=== PATIENT | male | born 1945 | race Caucasian/White ===

== ENCOUNTER → 2016-12-03 | Outpatient (CLI) | payer MEDICARE, BC | END | disposition home or self-care (01) | LOC: HKI 08:39 | PROVIDERS: ATTEND Orthopaedic Surgery | DX: M17.0 Bilateral primary osteoarthritis of knee (principal) | CPT/HCPCS: 20610; G0463; J7324 ==

== ENCOUNTER → 2016-12-10 | Outpatient (CLI) | payer MEDICARE, BC ==
--- NOTE | 2016-12-11 07:24 | HKNOTE ---
DATE OF SERVICE: 12/10/2016 INTERVAL HISTORY: The patient presents today for a followup on his left knee. He has a history of bilateral knee osteoarthritis and has had Orthovisc injections in the past. He last was injected with Orthovisc 1 week ago and is here today for a second injection. He had no adverse reactions from the previous injection. Symptomatically he is feeling better overall. He denies any erythema or warmth. He presents today for a second injection. PHYSICAL EXAMINATION: The patient is alert and oriented x4, in no acute distress. Knee range of motion is adequate. Varus and valgus forces are stable. There is no effusion, no erythema or warmth. Compartments are soft. Neurovascular status is intact distally. IMAGING: None done today. ASSESSMENT: Left knee osteoarthritis, here for second Orthovisc injection. PLAN: Under sterile conditions, the left knee was injected with 2 mL of Orthovisc here in the clinic today. The patient had no adverse events. He was advised to ice the area and avoid physical activity today. He will follow up in 1 weeks' time for his last injection. Dictated By: SHIRA BRIGGS PA for TARA CHRISTENSEN/AILYN Conf#: [id number] DID#: [id number] MTDD
== END | disposition home or self-care (01) ==
LOC: HKI 13:06
PROVIDERS: ATTEND Orthopaedic Surgery
DX: M17.12 Unilateral primary osteoarthritis, left knee (principal)
CPT/HCPCS: 20610; J7324

== ENCOUNTER → 2016-12-17 | Outpatient (CLI) | payer MEDICARE, BC | END | disposition home or self-care (01) | LOC: HKI 08:47 | PROVIDERS: ATTEND Orthopaedic Surgery | DX: M17.0 Bilateral primary osteoarthritis of knee (principal); M25.561 Pain in right knee; M25.562 Pain in left knee | CPT/HCPCS: 20610; G0463; J7324 ==

== ENCOUNTER → 2017-06-12 | Outpatient (CLI) | payer MEDICARE, BC | END | disposition home or self-care (01) | LOC: HKI 09:52 | PROVIDERS: ATTEND Orthopaedic Surgery | DX: M25.561 Pain in right knee (principal); M25.562 Pain in left knee; M17.0 Bilateral primary osteoarthritis of knee | CPT/HCPCS: 20610; J7324 ==

== ENCOUNTER → 2017-06-19 | Outpatient (CLI) | payer MEDICARE, BC ==
--- NOTE | 2017-06-19 15:00 | RADRPT ---
PROCEDURE: XR Pelvis and Hips. CLINICAL INDICATION: Pelvic pain. Bilateral hip pain. TECHNIQUE: Five views. Frontal pelvis. Frontal and lateral right hip. Frontal and lateral left hip. COMPARISON: No prior studies are available for comparison. FINDINGS: There is no fracture or dislocation. The soft tissues are normal. The articular surfaces are intact. There are degenerative changes of both hips with osteophytes not ed. There is no lytic or blastic lesion. The upper pelvis is not included on the images. IMPRESSION: 1. Mild degenerative changes of both hips. 2. No acute abnormality. RPTAT: QQ .Yared Garcia MD, MD Date Time Electronically viewed and signed by .Yared Garcia MD, on 06/19/2017 15:00 .R/
== END | disposition home or self-care (01) ==
LOC: HKI 08:38
PROVIDERS: ATTEND Orthopaedic Surgery
DX: M17.0 Bilateral primary osteoarthritis of knee (principal); M16.0 Bilateral primary osteoarthritis of hip
CPT/HCPCS: 20610; 73523; J7324

== ENCOUNTER → 2017-06-26 | Outpatient (CLI) | payer MEDICARE, BC | END | disposition home or self-care (01) | LOC: HKI 08:40 | PROVIDERS: ATTEND Orthopaedic Surgery | DX: M25.561 Pain in right knee (principal); M25.562 Pain in left knee; M16.0 Bilateral primary osteoarthritis of hip; M17.0 Bilateral primary osteoarthritis of knee | CPT/HCPCS: 20610; J7324 ==

== ENCOUNTER → 2018-03-24 | Outpatient (CLI) | END | disposition home or self-care (01) ==

== ENCOUNTER → 2018-03-31 | Outpatient (CLI) | END | disposition home or self-care (01) ==

== ENCOUNTER → 2018-04-07 | Outpatient (CLI) | END | disposition home or self-care (01) ==

== ENCOUNTER → 2018-10-13 | Outpatient (CLI) | END | disposition home or self-care (01) ==

== ENCOUNTER → 2018-10-20 | Outpatient (CLI) | END | disposition home or self-care (01) ==

== ENCOUNTER → 2018-10-27 | Outpatient (CLI) | END | disposition home or self-care (01) ==